=== PATIENT | female | born 1965 | race American Indian/Alaskan Native ===

== ENCOUNTER 2017-04-15 13:52 | Emergency (ER) | payer OTHER, MEDICAID ==
[~2017-04-15] VITALS: Ht 170.2 cm; Wt 79.4 kg
[2017-04-15] MEDS ORDERED: SODIUM CHLORIDE 0.9% 1,000 ML IV ONE (14:07)
[2017-04-15 14:47] LABS: Basophils # (auto) 0 uL; Basophils % (auto) 0.6 % (0.0-2.0); CONDITION Y; Eosinophils # (auto) 0.1 uL; Eosinophils % (auto) 0.9 % (0.0-7.0); Hematocrit 41.9 % (36.0-46.0); Hemoglobin 14.1 g/dL (12.2-16.2); Lymphocytes # (auto) 1.7 uL; Lymphocytes % (auto) 23.8 % (10.0-50.0); Mean Corpuscular Hemoglobin 29.5 pg (28.0-32.0); Mean Corpuscular Hgb Conc. 33.6 g/dL (32.0-36.0); Mean Platelet Volume 8.1 fL (7.4-10.4); Monocytes # (auto) 0.4 uL; Neutrophils % (auto) 69.7 % (37.0-80.0); Platelet Count (auto) 324 10^3/uL (140-450); Red Cell Distribution Width 14.1 % (11.6-16.0); White Blood Cell 7.2 10^3/uL (4.4-10.8)
[2017-04-15 15:00] LABS: INR 0.97 (0.9-1.15); Partial Thromboplastin Time 24.7 sec (22.64-33.71); Prothrombin Time 10.6 sec (9.37-12.3)
[2017-04-15 15:21] LABS: Albumin 4.1 g/dL (3.4-5.0); Alkaline Phosphatase 83 U/L (45-117); Anion Gap 8 (5-15); Aspartate Aminotransferase 21 U/L (15-37); BUN/Creatinine Ratio 14.8; Bilirubin, Total 0.4 mg/dL (0.2-1.0); Blood Urea Nitrogen 9 mg/dL (7-18); Calcium 9.3 mg/dL (8.5-10.1); Carbon Dioxide 26 mmol/L (21-32); Chloride 107 mmol/L (98-107); GFR African American 131 mL/min; GFR Non-African American 109 mL/min; Glucose 93 mg/dL (74-106); Magnesium 2.4 mg/dL (1.6-2.6); Potassium 3.9 mmol/L (3.5-5.1); Sodium 141 mmol/L (136-145); Total Protein 7.5 g/dL (6.4-8.2)
[2017-04-15] MEDS ORDERED: MORPHINE SULFATE 4 MG/ML SYRG IV ONE (15:45)
[2017-04-15] MEDS ORDERED: ONDANSETRON HCL 4 MG/2 ML VIAL IV ONE (15:45)
[2017-04-15] MEDS ORDERED: LORazepam 2MG/ML-1ML VIAL IV ONE (16:30)
[2017-04-15] MEDS ORDERED: HYDROcodone-ACET 10/325MG TAB PO ONE (20:30)
[2017-04-15] MEDS ORDERED: lamoTRIgine 100 MG TAB PO ONE (20:45)
[2017-04-15] MEDS ORDERED: GABAPENTIN 300 MG CAP PO ONE (20:45)
[2017-04-15] MEDS ORDERED: SERTRALINE HCL 50 MG TAB PO ONE (20:45)
[2017-04-15 23:17] VITALS: BP 117/85
== END 2017-04-15 23:51 | disposition short-term general hospital (02) ==
LOC: EDUNIT# 13:52 → EDBD 13:52 → ER 13:58
DX: R41.82 Altered mental status, unspecified (principal); G40.909 Epilepsy, unspecified, not intractable, without status epilepticus; G93.40 Encephalopathy, unspecified; Z88.6 Allergy status to analgesic agent; Z88.8 Allergy status to other drugs, medicaments and biological substances; E11.9 Type 2 diabetes mellitus without complications; Z90.710 Acquired absence of both cervix and uterus
CPT/HCPCS: 36415; 70450; 80053; 80307; 80320; 82962; 83735; 84484; 85025; 85610; 85730; 93005; 94761; 96361; 96374; 96375; 99285; J2060; J2270; J2405; J7030

== ENCOUNTER 2017-07-27 11:38 | Emergency (ER) | payer OTHER, MEDICAID ==
[~2017-07-27] VITALS: Ht 160 cm; Wt 68.0 kg
[2017-07-27 12:40] LABS: Basophils # (auto) 0 uL; Basophils % (auto) 0.6 % (0.0-2.0); Eosinophils # (auto) 0.1 uL; Eosinophils % (auto) 1.8 % (0.0-7.0); Hematocrit 40.9 % (36.0-46.0); Hemoglobin 14.2 g/dL (12.2-16.2); Lymphocytes # (auto) 1.6 uL; Lymphocytes % (auto) 25.4 % (10.0-50.0); Mean Corpuscular Hemoglobin 30.7 pg (28.0-32.0); Mean Corpuscular Hgb Conc. 34.8 g/dL (32.0-36.0); Mean Corpuscular Volume 88.3 fL (80.0-100.0); Mean Platelet Volume 7.7 fL (6.9-10.8); Monocytes # (auto) 0.4 uL; Monocytes % (auto) 5.7 % (0.0-12.0); Neutrophils # (auto) 4.1 uL; Neutrophils % (auto) 66.5 % (37.0-80.0); Platelet Count (auto) 257 10^3/uL (140-450); Red Cell Distribution Width 13.7 % (11.8-14.3); White Blood Cell 6.2 10^3/uL (4.4-10.8)
[2017-07-27 13:10] LABS: Bilirubin, Total 0.4 mg/dL (0.2-1.0); Potassium 3.8 mmol/L (3.5-5.1); Total Protein 7.4 g/dL (6.4-8.2)
[2017-07-27] MEDS ORDERED: LORazepam 2MG/ML-1ML VIAL ONE ×2 (13:38→18:58)
[2017-07-27] MEDS ORDERED: LORazepam 2MG/ML-1ML VIAL IV ONE ×2 (13:45→19:15)
[2017-07-27] MEDS ORDERED: LAM100T PO (13:53)
[2017-07-27] MEDS ORDERED: GABA-339 PO (13:53)
[2017-07-27] MEDS ORDERED: LORA2TAB89 PO (13:53)
[2017-07-27] MEDS ORDERED: SERT-274 PO (13:53)
[2017-07-27] MEDS ORDERED: HYDROcodone-ACET 10/325MG TAB PO ONE (17:45)
[2017-07-27] MEDS ORDERED: ACETAMINOPHEN 325 MG TAB PO ONE (17:45)
[2017-07-27 18:55] VITALS: BP 121/77
== END 2017-07-27 19:30 | disposition short-term general hospital (02) ==
LOC: ER 11:38 → EDBD 11:38 → ER 19:30
DX: G40.909 Epilepsy, unspecified, not intractable, without status epilepticus (principal); R42 Dizziness and giddiness; Z90.710 Acquired absence of both cervix and uterus; Q28.3 Other malformations of cerebral vessels
CPT/HCPCS: 36415; 70450; 71010; 80053; 83605; 85025; 96374; 96376; 99285; J2060

== ENCOUNTER 2018-08-18 11:54 | Emergency (ER) | payer OTHER, MEDICAID ==
[~2018-08-18] VITALS: Ht 172.7 cm; Wt 72.6 kg
[~2018-08-18 11:54] MED LIST: GABA-339 PO; LAM100T PO; LORA2TAB89 PO; SERT-274 PO
[2018-08-18 13:23] LABS: Basophils # (auto) 0 uL; Basophils % (auto) 0.9 % (0.0-2.0); Eosinophils # (auto) 0.1 uL; Eosinophils % (auto) 2.3 % (0.0-7.0); Hematocrit 37.4 % (36.0-46.0); Hemoglobin 12.6 g/dL (12.2-16.2); Lymphocytes # (auto) 1.5 uL; Lymphocytes % (auto) 27.5 % (10.0-50.0); Mean Corpuscular Hemoglobin 30.5 pg (28.0-32.0); Mean Corpuscular Hgb Conc. 33.7 g/dL (32.0-36.0); Mean Corpuscular Volume 90.3 fL (80.0-100.0); Monocytes # (auto) 0.4 uL; Monocytes % (auto) 7.7 % (0.0-12.0); Neutrophils # (auto) 3.4 uL; Neutrophils % (auto) 61.6 % (37.0-80.0); Platelet Count (auto) 212 10^3/uL (140-450); Red Blood Cells 4.14 10^6/uL (4.0-5.20); Red Cell Distribution Width 13.9 % (11.8-14.3); White Blood Cell 5.5 10^3/uL (4.4-10.8)
[2018-08-18 13:38] LABS: Alanine Aminotransferase 20 U/L (13-56); Albumin 3.4 g/dL (3.4-5.0); Anion Gap 7 (5-15); Aspartate Aminotransferase 24 U/L (15-37); Blood Alcohol < 3.0 mg/dL (0-5); Carbon Dioxide 25 mmol/L (21-32); Chloride 110 mmol/L (98-107); GFR African American 110 mL/min; GFR Non-African American 91 mL/min; Glucose 82 mg/dL (74-106); Potassium 3.7 mmol/L (3.5-5.1); Sodium 142 mmol/L (136-145)
[2018-08-18 13:43] LABS: Alkaline Phosphatase 62 U/L (45-117); Bilirubin, Total 0.3 mg/dL (0.2-1.0); Total Protein 6.1 g/dL (6.4-8.2)
[2018-08-18 13:53] LABS: BUN/Creatinine Ratio 12.7; Blood Urea Nitrogen 9 mg/dL (7-18)
[2018-08-18] MEDS ORDERED: KETOROLAC TROMETH 30 MG/ML 1ML VIAL IV ONE (14:30)
[2018-08-18 15:34] LABS: Urine Amorphous Crystal FEW /hpf (None Seen); Urine Bacteria MANY /hpf (None Seen); Urine Blood 1+ /uL (Negative); Urine Mucus FEW (None Seen); Urine Specific Gravity 1.006 (1.001-1.035); Urine WBC 32 /hpf (0 - 5); Urine WBC Clumps PRESENT /hpf (None Seen)
[2018-08-18] MEDS ORDERED: MORPHINE SULFATE 4 MG/ML SYR/VIAL IV ONE (15:45)
[2018-08-18 16:14] LABS: Alcohol, Urine < 3.0 mg/dL (0-5); Amphetamine Screen, Urine NEGATIVE (NEGATIVE); Barbiturate Scree,Urine NEGATIVE (NEGATIVE); Benzodiazephine Screen, Urine POSITIVE (NEGATIVE); Cannabinoid Screen, Urine NEGATIVE (NEGATIVE); Cocaine Screen, Urine NEGATIVE (NEGATIVE); Opiate Scree,Urine POSITIVE (NEGATIVE); Phencyclidine Screen, Urine NEGATIVE (NEGATIVE)
[2018-08-18 16:33] VITALS: BP 132/86
== END 2018-08-18 16:54 | disposition home or self-care (01) ==
LOC: ER 11:54 → EDBD 11:54 → ER 16:54
DX: N39.0 Urinary tract infection, site not specified (principal); R41.82 Altered mental status, unspecified; Z88.8 Allergy status to other drugs, medicaments and biological substances; Z79.899 Other long term (current) drug therapy; Z90.710 Acquired absence of both cervix and uterus
CPT/HCPCS: 36415; 70450; 80053; 80307; 80320; 81001; 84484; 85025; 93005; 96374; 96375; 99285; J1885; J2270

== ENCOUNTER 2019-08-12 21:35 | Emergency (ER) | payer OTHER, MEDICAID ==
[~2019-08-12] VITALS: Ht 165.1 cm; Wt 68.0 kg
[2019-08-12] MEDS ORDERED: LORazepam 2MG/ML-1ML VIAL ONE (22:12)
[2019-08-12] MEDS ORDERED: LORazepam 2MG/ML-1ML VIAL IV ONE (22:15)
[2019-08-12 22:30] LABS: Basophils # (auto) 0 uL; Basophils % (auto) 0.7 % (0.0-2.0); Eosinophils # (auto) 0.2 uL; Eosinophils % (auto) 3.1 % (0.0-7.0); Hematocrit 38.9 % (36.0-46.0); Hemoglobin 13.4 g/dL (12.2-16.2); Lymphocytes # (auto) 1.8 uL; Lymphocytes % (auto) 29.4 % (10.0-50.0); Mean Corpuscular Hemoglobin 30.5 pg (28.0-32.0); Mean Corpuscular Hgb Conc. 34.3 g/dL (32.0-36.0); Mean Corpuscular Volume 88.9 fL (80.0-100.0); Monocytes # (auto) 0.6 uL; Monocytes % (auto) 10.2 % (0.0-12.0); Neutrophils # (auto) 3.5 uL; Neutrophils % (auto) 56.6 % (37.0-80.0); Platelet Count (auto) 261 10^3/uL (140-450); Red Blood Cells 4.37 10^6/uL (4.0-5.20); Red Cell Distribution Width 13.1 % (11.8-14.3); White Blood Cell 6.2 10^3/uL (4.4-10.8)
[2019-08-12 22:49] LABS: Albumin 3.7 g/dL (3.4-5.0); Calcium 8.3 mg/dL (8.5-10.1); Potassium 3.7 mmol/L (3.5-5.1)
[2019-08-12 22:54] LABS: Bilirubin, Total 0.2 mg/dL (0.2-1.0); Total Protein 6.9 g/dL (6.4-8.2)
[2019-08-13] MEDS ORDERED: ONDANSETRON HCL 4 MG/2 ML VIAL IV ONE (00:15)
[2019-08-13] MEDS ORDERED: MORPHINE SULFATE 4 MG/ML SYR/VIAL IV ONE ×2 (00:15→03:30)
[2019-08-13] MEDS ORDERED: MIDAZOLAM HCL 1MG/1ML-2 ML VIAL IV ONE (01:00)
[2019-08-13] MEDS ORDERED: lamoTRIgine 25 MG TAB PO ONE (01:00)
[2019-08-13 03:49] VITALS: BP 104/58
[2019-08-13 04:01] LABS: Urine Bacteria FEW /hpf (None Seen); Urine Blood Negative /uL (Negative); Urine Hyaline Cast FEW /lpf (0 - 2); Urine Specific Gravity 1.013 (1.001-1.035); Urine WBC 3 /hpf (0 - 5)
[2019-08-13 04:17] LABS: Alcohol, Urine < 3.0 mg/dL (0-5); Amphetamine Screen, Urine NEGATIVE (NEGATIVE); Barbiturate Scree,Urine NEGATIVE (NEGATIVE); Benzodiazephine Screen, Urine POSITIVE (NEGATIVE); Cannabinoid Screen, Urine NEGATIVE (NEGATIVE); Cocaine Screen, Urine NEGATIVE (NEGATIVE); Opiate Scree,Urine POSITIVE (NEGATIVE); Phencyclidine Screen, Urine NEGATIVE (NEGATIVE)
== END 2019-08-13 04:07 | disposition home or self-care (01) ==
LOC: EDBD 21:35 → ER 21:40
DX: R56.9 Unspecified convulsions (principal); R55 Syncope and collapse; M54.2 Cervicalgia; Z90.710 Acquired absence of both cervix and uterus
CPT/HCPCS: 36415; 70450; 80053; 80307; 80320; 81001; 85025; 93005; 94761; 96374; 96375; 96376; 99284; J2060; J2270; J2405

== ENCOUNTER 2021-04-11 13:43 | Inpatient (IN) | payer OTHER, MEDICAID ==
[~2021-04-11] VITALS: Ht 167.6 cm; Wt 70.5 kg
[~2021-04-11 13:43] MED LIST changes: -SERT-274 PO; +SERT50TA19 PO
[2021-04-11 14:09] LABS: Basophils # (auto) 0 10 ^3/uL (0-0.2); Basophils % (auto) 0.2 % (0.0-2.0); Eosinophils # (auto) 0 10 ^3/uL (0-0.8); Hematocrit 39.6 % (36.0-46.0); Hemoglobin 13.4 g/dL (12.2-16.2); Lymphocytes # (auto) 0.5 10 ^3/uL (0.4-5.4); Mean Corpuscular Hemoglobin 31.4 pg (28.0-32.0); Mean Corpuscular Hgb Conc. 33.9 g/dL (32.0-36.0); Mean Corpuscular Volume 92.7 fL (80.0-100.0); Monocytes # (auto) 0.1 10 ^3/uL (0-1.3); Monocytes % (auto) 0.8 % (0.0-12.0); Neutrophils # (auto) 12.8 10 ^3/uL (1.6-8.6); Red Blood Cells 4.28 10^6/uL (4.0-5.20); Red Cell Distribution Width 15.1 % (11.8-14.3); White Blood Cell 13.5 10^3/uL (4.4-10.8)
[2021-04-11 14:25] LABS: Albumin 4.3 g/dL (3.4-5.0); Calcium 8.5 mg/dL (8.5-10.1)
[2021-04-11 14:28] LABS: BUN/Creatinine Ratio 21.3; Bilirubin, Total 0.6 mg/dL (0.2-1.0); Total Protein 7.9 g/dL (6.4-8.2)
[2021-04-11] MEDS ORDERED: NITROGLYCERIN 0.4 MG SL TAB SL PRN (17:00)
[2021-04-11] MEDS ORDERED: MORPHINE SULF INJ 2 MG/ML SYRINGE 1ML IV PRN ×2 (17:00)
[2021-04-11] MEDS ORDERED: ONDANSETRON HCL 4 MG/2 ML VIAL IV PRN (17:00)
[2021-04-11 18:00] LABS: CRP High Sensitivity 3.78 mg/dL (< 0.3)
[2021-04-11] MEDS: cefTRIAXone 1GM/50ML D5W 50 ML IV SCH (18:35)
[2021-04-11] MEDS: AZITHROMYCIN 500MG/ 250ML 250 ML IV SCH (18:35)
[2021-04-11] MEDS: IPRATROPIUM BROM 0.5 MG/2.5ML INH SOL NEB SCH (18:41)
[2021-04-11] MEDS: ALBUTEROL SULF 2.5 MG/0.5ML(0.5%) NEB SOLN NEB SCH (18:41)
[2021-04-11 20:38] VITALS: BP 98/58
[2021-04-11] MEDS: LORazepam 2MG/ML-1ML VIAL IV PRN (22:05)
[2021-04-11 22:13] VITALS: BP 105/67
[2021-04-11] MEDS: metroNIDAZOLE 500MG/100ML 100 ML IV SCH (23:48)
[2021-04-11] MEDS: lamoTRIgine 100 MG TAB PO SCH (23:48)
[2021-04-12 02:30] VITALS: BP 105/67
[2021-04-12] MEDS ORDERED: CEPH-322 PO (02:56)
[2021-04-12] MEDS ORDERED: LACO150T PO (02:56)
[2021-04-12] MEDS ORDERED: SERT50TA19 PO (02:56)
[2021-04-12] MEDS ORDERED: LAMO200T2 PO (02:56)
[2021-04-12] MEDS ORDERED: [UNRECOGNIZED DRUG - CODE] PO (02:56)
[2021-04-12] MEDS ORDERED: TERB250T28 PO (02:56)
[2021-04-12] MEDS ORDERED: GABA300C10 PO ×2 (02:56→09:38)
[2021-04-12 05:00] VITALS: BP 109/51
[2021-04-12] MEDS: LORazepam 2MG/ML-1ML VIAL IV PRN ×2 (05:06→09:38)
[2021-04-12] MEDS: metroNIDAZOLE 500MG/100ML 100 ML IV SCH ×3 (05:34→22:12)
[2021-04-12] MEDS: ALBUTEROL SULF 2.5 MG/0.5ML(0.5%) NEB SOLN NEB SCH ×3 (06:16→19:18)
[2021-04-12] MEDS: IPRATROPIUM BROM 0.5 MG/2.5ML INH SOL NEB SCH ×3 (06:16→19:18)
[2021-04-12 07:01] LABS: Basophils # (auto) 0 10 ^3/uL (0-0.2); Basophils % (auto) 0.1 % (0.0-2.0); Eosinophils # (auto) 0 10 ^3/uL (0-0.8); Eosinophils % (auto) 0.4 % (0.0-7.0); Hemoglobin 11.6 g/dL (12.2-16.2); Lymphocytes # (auto) 0.9 10 ^3/uL (0.4-5.4); Lymphocytes % (auto) 7.7 % (10.0-50.0); Mean Corpuscular Hemoglobin 31.8 pg (28.0-32.0); Mean Corpuscular Volume 90.9 fL (80.0-100.0); Monocytes # (auto) 0.5 10 ^3/uL (0-1.3); Monocytes % (auto) 4.2 % (0.0-12.0); Neutrophils # (auto) 9.8 10 ^3/uL (1.6-8.6); Neutrophils % (auto) 87.6 % (37.0-80.0); Red Blood Cells 3.63 10^6/uL (4.0-5.20); Red Cell Distribution Width 14.6 % (11.8-14.3); White Blood Cell 11.1 10^3/uL (4.4-10.8)
[2021-04-12 07:15] LABS: BUN/Creatinine Ratio 29.8; Calcium 8.3 mg/dL (8.5-10.1); Potassium 3.5 mmol/L (3.5-5.1)
[2021-04-12] MEDS ORDERED: ACETAMINOPHEN 325 MG TAB PO PRN (07:15)
[2021-04-12] MEDS ORDERED: guaiFENesin-DM 100/10mg/5ml SYR PO PRN (07:15)
[2021-04-12 09:00] VITALS: BP 92/64
[2021-04-12] MEDS ORDERED: MORP1TAB14 PO (09:38)
[2021-04-12] MEDS ORDERED: HYDR-4798 PO (09:38)
[2021-04-12] MEDS: lamoTRIgine 100 MG TAB PO SCH ×2 (09:58→22:13)
[2021-04-12] MEDS: cefTRIAXone 1GM/50ML D5W 50 ML IV SCH (09:59)
[2021-04-12] MEDS: AZITHROMYCIN 500MG/ 250ML 250 ML IV SCH (09:59)
[2021-04-12] MEDS ORDERED: lamoTRIgine 100 MG TAB PO ONE (12:45)
[2021-04-12 13:00] VITALS: BP 98/68
[2021-04-12] MEDS ORDERED: lamoTRIgine 25 MG TAB PO ONE (13:00)
[2021-04-12] MEDS: GABAPENTIN 300 MG CAP PO SCH ×2 (14:54→22:13)
[2021-04-12] MEDS ORDERED: HYDROcodone-ACET 10/325MG TAB PO PRN (15:30)
[2021-04-12 22:03] VITALS: BP 83/58
[2021-04-12] MEDS: lamoTRIgine 25 MG TAB PO SCH (22:13)
[2021-04-12] MEDS: LACOSAMIDE 50 MG TAB PO SCH (22:13)
[2021-04-13 04:49] VITALS: BP 141/72
[2021-04-13] MEDS: GABAPENTIN 300 MG CAP PO SCH ×2 (05:30→14:48)
[2021-04-13] MEDS: metroNIDAZOLE 500MG/100ML 100 ML IV SCH (05:30)
[2021-04-13] MEDS: IPRATROPIUM BROM 0.5 MG/2.5ML INH SOL NEB SCH ×2 (06:01→11:26)
[2021-04-13] MEDS: ALBUTEROL SULF 2.5 MG/0.5ML(0.5%) NEB SOLN NEB SCH ×2 (06:01→11:27)
[2021-04-13 06:49] LABS: Basophils # (auto) 0 10 ^3/uL (0-0.2); Basophils % (auto) 0.4 % (0.0-2.0); Eosinophils # (auto) 0.2 10 ^3/uL (0-0.8); Eosinophils % (auto) 1.8 % (0.0-7.0); Hematocrit 32.7 % (36.0-46.0); Hemoglobin 11.5 g/dL (12.2-16.2); Lymphocytes # (auto) 1.5 10 ^3/uL (0.4-5.4); Lymphocytes % (auto) 14.9 % (10.0-50.0); Mean Corpuscular Hemoglobin 32.1 pg (28.0-32.0); Mean Corpuscular Hgb Conc. 35.3 g/dL (32.0-36.0); Mean Corpuscular Volume 90.9 fL (80.0-100.0); Monocytes # (auto) 0.5 10 ^3/uL (0-1.3); Monocytes % (auto) 4.9 % (0.0-12.0); Red Cell Distribution Width 14.6 % (11.8-14.3); White Blood Cell 10.2 10^3/uL (4.4-10.8)
[2021-04-13 06:59] LABS: Albumin 3.4 g/dL (3.4-5.0); Calcium 8.2 mg/dL (8.5-10.1); Potassium 3.2 mmol/L (3.5-5.1)
[2021-04-13 07:04] LABS: Bilirubin, Total 0.7 mg/dL (0.2-1.0); Total Protein 6.6 g/dL (6.4-8.2)
[2021-04-13 09:00] VITALS: BP 121/69
[2021-04-13] MEDS: lamoTRIgine 100 MG TAB PO SCH (09:47)
[2021-04-13] MEDS: cefTRIAXone 1GM/50ML D5W 50 ML IV SCH (09:47)
[2021-04-13] MEDS: lamoTRIgine 25 MG TAB PO SCH (09:48)
[2021-04-13] MEDS: LACOSAMIDE 50 MG TAB PO SCH (09:48)
[2021-04-13] MEDS: AZITHROMYCIN 500MG/ 250ML 250 ML IV SCH (11:16)
[2021-04-13] MEDS: LORazepam 2MG/ML-1ML VIAL IV PRN (11:49)
[2021-04-13 13:04] VITALS: BP 119/70
== END 2021-04-13 14:50 | disposition home or self-care (01) | DRG 871 ==
LOC: EDBD 13:43 → ER 13:43 → TELE 17:07 → TELE-CENTR 22:24
PROVIDERS: ADMIT Nurse Practitioner Acute Care; ATTEND Internal Medicine
DX: A41.9 Sepsis, unspecified organism (principal); J96.01 Acute respiratory failure with hypoxia; J69.0 Pneumonitis due to inhalation of food and vomit; J98.11 Atelectasis; Z20.822 Contact with and (suspected) exposure to COVID-19; F32.9 Major depressive disorder, single episode, unspecified; F41.9 Anxiety disorder, unspecified; G40.901 Epilepsy, unspecified, not intractable, with status epilepticus; W08.XXXA Fall from other furniture, initial encounter; F17.200 Nicotine dependence, unspecified, uncomplicated; Z79.899 Other long term (current) drug therapy; Z82.0 Family history of epilepsy and other diseases of the nervous system; Z90.710 Acquired absence of both cervix and uterus; Y93.89 Activity, other specified; Y92.89 Other specified places as the place of occurrence of the external cause; Y99.8 Other external cause status
CPT/HCPCS: 36415; 70450; 71045; 80048; 80053; 82550; 83735; 85025; 85049; 86141; 87040; 87426; 93005; 94640; 99291; G0378; J0696; J3490

== ENCOUNTER 2021-07-22 14:08 | Emergency (ER) | payer OTHER, MEDICAID ==
[~2021-07-22] VITALS: Ht 167.6 cm; Wt 63.5 kg
[~2021-07-22 14:08] MED LIST changes: +CEPH-322 PO; -GABA-339 PO; +GABA300C10 PO; +HYDR-4798 PO; +LACO150T PO; -LAM100T PO; +LAMO200T2 PO; -LORA2TAB89 PO; +MORP1TAB14 PO; +TERB250T28 PO; +[UNRECOGNIZED DRUG - CODE] PO
[2021-07-22 14:46] LABS: Basophils # (auto) 0.1 10 ^3/uL (0-0.2); Eosinophils # (auto) 0.2 10 ^3/uL (0-0.8); Eosinophils % (auto) 4.9 % (0.0-7.0); Hematocrit 37.4 % (36.0-46.0); Hemoglobin 12.4 g/dL (12.2-16.2); Lymphocytes # (auto) 1.7 10 ^3/uL (0.4-5.4); Lymphocytes % (auto) 35.2 % (10.0-50.0); Mean Corpuscular Hemoglobin 29.9 pg (28.0-32.0); Mean Corpuscular Hgb Conc. 33.2 g/dL (32.0-36.0); Monocytes # (auto) 0.5 10 ^3/uL (0-1.3); Monocytes % (auto) 9.3 % (0.0-12.0); Neutrophils # (auto) 2.5 10 ^3/uL (1.6-8.6); Neutrophils % (auto) 49.6 % (37.0-80.0); Red Blood Cells 4.15 10^6/uL (4.0-5.20); Red Cell Distribution Width 13.5 % (11.8-14.3); White Blood Cell 4.9 10^3/uL (4.4-10.8)
[2021-07-22 15:40] LABS: Albumin 3.5 g/dL (3.4-5.0); Anion Gap 4 (5-15); Aspartate Aminotransferase 9 U/L (15-37); Blood Urea Nitrogen 7 mg/dL (7-18); Calcium 7.9 mg/dL (8.5-10.1); Carbon Dioxide 28 mmol/L (21-32); Chloride 109 mmol/L (98-107); Glucose 91 mg/dL (74-106); Magnesium 2.2 mg/dL (1.6-2.6); Potassium 3.4 mmol/L (3.5-5.1); Sodium 141 mmol/L (136-145)
[2021-07-22 15:46] LABS: Alanine Aminotransferase 20 U/L (13-56); Alkaline Phosphatase 63 U/L (45-117); BUN/Creatinine Ratio 11.5; Bilirubin, Total 0.2 mg/dL (0.2-1.0); GFR African American 130 mL/min; GFR Non-African American 107 mL/min; Total Protein 6.3 g/dL (6.4-8.2)
[2021-07-22] MEDS ORDERED: ACETAMINOPHEN 500 MG TAB PO ONE (19:45)
[2021-07-22 20:33] VITALS: BP 148/63
== END 2021-07-22 20:24 | disposition left against medical advice (07) ==
LOC: ER 14:08 → EDBD 14:08 → ER 20:24
DX: R56.9 Unspecified convulsions (principal); Z90.710 Acquired absence of both cervix and uterus
CPT/HCPCS: 36415; 70450; 71045; 80053; 82550; 83605; 83735; 84484; 85025; 93005

== ENCOUNTER 2023-09-26 23:45 | Emergency (ER) | payer OTHER, MEDICAID ==
[~2023-09-26] VITALS: Ht 167.6 cm; Wt 86.2 kg
[~2023-09-26 23:45] MED LIST changes: -CEPH-322 PO; +CEPH250C PO; +GABA-1250 PO; -GABA300C10 PO; +SERT-206 PO; -SERT50TA19 PO
[2023-09-27 00:15] VITALS: PULSE 95; RESP 13; O2SAT 98
[2023-09-27 00:29] LABS: Basophils # (auto) 0 10 ^3/uL (0-0.2); Basophils % (auto) 0.4 % (0.0-2.0); Eosinophils # (auto) 0 10 ^3/uL (0-0.8); Hematocrit 39.8 % (36.0-46.0); Hemoglobin 13.3 g/dL (12.2-16.2); Lymphocytes # (auto) 0.7 10 ^3/uL (0.4-5.4); Lymphocytes % (auto) 12.1 % (10.0-50.0); Mean Corpuscular Hemoglobin 32.4 pg (28.0-32.0); Mean Corpuscular Hgb Conc. 33.3 g/dL (32.0-36.0); Mean Corpuscular Volume 97.3 fL (80.0-100.0); Monocytes # (auto) 0.2 10 ^3/uL (0-1.3); Monocytes % (auto) 2.8 % (0.0-12.0); Neutrophils # (auto) 5.1 10 ^3/uL (1.6-8.6); Neutrophils % (auto) 84.7 % (37.0-80.0); Nucleated Red Blood Cells % 0.1 %; Red Cell Distribution Width 16.9 % (11.8-14.3)
[2023-09-27 00:47] LABS: INR 1.22 (0.9-1.15); Partial Thromboplastin Time 31.6 SEC (24.5-34.5); Prothrombin Time 12.6 sec (9.3-11.8)
[2023-09-27 00:49] LABS: Alanine Aminotransferase 29 U/L (7-40); Albumin 4.3 g/dL (3.2-4.8); Alkaline Phosphatase 67 U/L (46-116); Anion Gap 10 (5-15); Aspartate Aminotransferase 133 U/L (13-40); BUN/Creatinine Ratio 10.9 (10.0-20.0); Blood Urea Nitrogen 10 mg/dL (9-23); Calcium 8.4 mg/dL (8.7-10.4); Carbon Dioxide 20 mmol/L (20-30); Chloride 106 mmol/L (98-107); Glucose 121 mg/dL (74-106); Magnesium 1.9 mg/dL (1.6-2.6); Potassium 2.8 mmol/L (3.5-5.1); Sodium 136 mmol/L (136-145)
[2023-09-27 00:50] LABS: Bilirubin, Total 0.6 mg/dL (0.2-1.0); Total Protein 6.8 g/dL (5.7-8.2)
[2023-09-27 01:48] LABS: Base Excess -4.3 mmol/L (-2.0-2.0)
[2023-09-27] MEDS ORDERED: cefTRIAXone SOD 500 MG VL IV ONE (03:30)
[2023-09-27] MEDS ORDERED: cefTRIAXone 1GM/50ML D5W 50 ML IV ONE (03:45)
[2023-09-27 03:47] LABS: COVID19 ANTIGEN SOFIA FIA NEGATIVE (NEGATIVE)
[2023-09-27 03:49] LABS: Rapid Influenza B Negative (Negative)
[2023-09-27 03:51] LABS: Rapid Influenza A Positive (Negative)
[2023-09-27 06:28] LABS: Lactic Acid w/Reflex 2.2 mmol/L (0.4-2.0)
[2023-09-27] MEDS ORDERED: SODIUM CHLORIDE 0.9% 1,000 ML IV ONE (06:45)
[2023-09-27 07:50] VITALS: PULSE 115; RESP 17; O2SAT 97
[2023-09-27 10:20] VITALS: BP 112/70; PULSE 114; RESP 14; TEMP 100.2; O2SAT 97
== END 2023-09-27 10:45 | disposition short-term general hospital (02) ==
LOC: ER 23:45 → EDBD 23:45 → ER 09-27 10:40
DX: J18.9 Pneumonia, unspecified organism (principal); F32.9 Major depressive disorder, single episode, unspecified; R51.9 Headache, unspecified; Z90.710 Acquired absence of both cervix and uterus; Z88.8 Allergy status to other drugs, medicaments and biological substances; Z79.899 Other long term (current) drug therapy; Z20.822 Contact with and (suspected) exposure to COVID-19
CPT/HCPCS: 36415; 36600; 70450; 71045; 71250; 72125; 74176; 80053; 82805; 83605; 83735; 83880; 84484; 85025; 85610; 85730; 87426; 87804; 93005; 96361; 96365; 99285; J0696; J7030

== ENCOUNTER 2025-05-17 17:07 | Emergency (ER) | payer OTHER, MEDICAID ==
[~2025-05-17] VITALS: Ht 165.1 cm; Wt 65.9 kg
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
[2025-05-17] MEDS: KETOROLAC TROMETH 60MG/2ML VIAL IM ONE (18:38)
--- NOTE | 2025-05-17 18:44 | DVH ---
EXAM: CT HEAD WITHOUT CONTRAST INDICATION: Altered mental status TECHNIQUE: CT of the head without intravenous contrast. Radiation Dose Information: CT Dose: CTDI volume is 51.73 mGy. Dose-length product is 890.32 mGy*cm The dose indicators for CT are the volume Computed Tomography (CT) Dose Index (CTDIvol) and the Dose Length Product (DLP), and are measured in units of mGy and mGy-cm, respectively. These indicators are not patient dose, but values generated from the CT scanner acquisition factors. The report includes radiation exposure data for exposures received during this examination. COMPARISON: CT HEAD WITHOUT CONTRAST on DOS: 09/27/23, HEAD WITHOUT CONTRAST on DOS: 07/22/21, HEAD W ITHOUT CONTRAST on DOS: 04/11/21 FINDINGS: There is no evidence of acute intracranial hemorrhage, extra-axial collection, mass effect, midline s hift, herniation or hydrocephalus. Stable hyperdense mass in the left posterior superior temporal lobe sent to the atrial of the left la teral ventricle. The ventricles, sulci and cisterns are age appropriate. The nicholson-white differentiation is intact. Patchy periventricular and subcortical white matter hypoattenuation is nonspecific but may be related to small vessel ischemic disease. The visualized paranasal sinuses and mastoid air cells are clear. The surrounding soft tissues and osseous structures are unremarkable. IMPRESSION: 1. Hyperdense partially calcified mass left inferior temporal lobe. Currently measures 2.5 x 2.8 cm o n the previous study of 09/27/2023 it measured proximally 2 x 2.2 cm 2. Recommend MRI for further evaluation if not previously performed. MRI was recommended on previous study of 09/27/2023. HS:Y
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
[2025-05-17 19:33] LABS: Hematocrit 39.9 % (36.0-46.0); Hemoglobin 13.7 g/dL (12.2-16.2); Mean Corpuscular Hemoglobin 30.7 pg (28.0-32.0); Mean Corpuscular Volume 89.8 fL (80.0-100.0); Nucleated Red Blood Cells % 0.1 %
[2025-05-17 19:44] LABS: Alanine Aminotransferase 15 U/L (7-40); Albumin 4.6 g/dL (3.2-4.8); Alkaline Phosphatase 76 U/L (46-116); Anion Gap 8 (5-15); BUN/Creatinine Ratio 9.4 (10.0-20.0); Bilirubin, Total 0.3 mg/dL (0.2-1.0); Blood Urea Nitrogen 8 mg/dL (9-23); Calcium 9.4 mg/dL (8.7-10.4); Carbon Dioxide 29 mmol/L (20-31); Chloride 105 mmol/L (98-107); Glucose 87 mg/dL (74-106); Lipase 28 U/L (12-53); Potassium 4.1 mmol/L (3.5-5.1); Sodium 142 mmol/L (136-145); Total Protein 7.2 g/dL (5.7-8.2)
[2025-05-17 21:32] LABS: Urine Protein, UAD TRACE (Negative)
[2025-05-18 00:36] VITALS: TEMP 97.9; O2SAT 94
[2025-05-18 00:40] VITALS: BP 100/60; PULSE 60; RESP 12
[2025-05-18] MEDS: HYDROmorphone HCL 2 MG/ML VL/or syr IV ONE (00:40)
== END 2025-05-18 02:39 | disposition home or self-care (01) ==
LOC: EDBD 17:07 → ER 17:07
DX: R41.82 Altered mental status, unspecified (principal); N39.0 Urinary tract infection, site not specified; F32.A Depression, unspecified; Z79.899 Other long term (current) drug therapy; Z90.710 Acquired absence of both cervix and uterus
CPT/HCPCS: 36415; 70450; 72125; 80053; 81001; 83690; 85025; 96372; 96374; 99285; J1171; J1885